=== PATIENT | female | born 1965 | race American Indian/Alaskan Native ===

== ENCOUNTER 2016-12-30 13:06 | Emergency (ER) | payer SELFPAY ==
[2016-12-30 14:06] VITALS: BP 140/99
[2016-12-30 14:35] LABS: Bilirubin,Urine NEG (Negative); Blood,Urine NEG (Negative); Ketones,Urine NEG (Negative); Leukocyte Esterase,Urine NEG (Negative); Mucus,Urine FEW /HPF; Nitrite,Urine NEG (Negative); Protein,Urine <15 mg/dL mg/dL (Negative); WBC,Urine < 1.0 /HPF (0.0-6.0)
[2016-12-30 14:38] LABS: Basophils % (Auto) 0.8 % (0.0-1.8); Eosinophils % (Auto) 1.5 % (0.0-4.3); Hematocrit 32.6 % (30.3-42.9); Mean Corpuscular HGB Conc 31 % (30-34); Platelet Count 307 K/mm3 (140-440); Red Blood Count 4.68 M/mm3 (3.65-5.03); Red Cell Distribution Width 18.9 % (13.2-15.2); White Blood Count 5.8 K/mm3 (4.5-11.0)
[2016-12-30 14:42] LABS: Mean Corpuscular Hemoglobin 21 pg (28-32); Mean Corpuscular Volume 70 fl (79-97)
[2016-12-30 14:57] LABS: Albumin 3.9 g/dL (3.9-5); Alkaline Phosphatase 45 units/L (35-129); Anion Gap 17 mmol/L; BUN/Creatinine Ratio 13.33; Bilirubin,Total 0.3 mg/dL (0.1-1.2); Blood Urea Nitrogen 8 mg/dL (7-17); Calcium 8.8 mg/dL (8.4-10.2); Carbon Dioxide 25 mmol/L (22-30); Glucose 88 mg/dL (65-100); Lipase 25 units/L (13-60); Sodium 141 mmol/L (137-145); Total Protein 7.7 g/dL (6.3-8.2)
[2016-12-30 15:22] LABS: Alanine Aminotransferase < 5 units/L (7-56)
--- NOTE | 2017-01-03 18:45 | ED Elopement Review ---
ED Pt Elopement review - Results review Lab results: Laboratory Tests 12/30/16 12/30/16 12/30/16 14:00 14:08 14:08 WBC 5.8 RBC 4.68 Hgb 10.0 L Hct 32.6 MCV 70 L MCH 21 L MCHC 31 RDW 18.9 H Plt Count 307 Lymph % (Auto) 29.1 [place] % (Auto) 9.8 H Eos % (Auto) 1.5 Baso % (Auto) 0.8 Lymph # 1.7 [place] # 0.6 Eos # 0.1 Baso # 0.0 Seg Neutrophils % 58.8 Seg Neutrophils # 3.4 Sodium 141 Potassium 4.0 Chloride 103.0 Carbon Dioxide 25 Anion Gap 17 BUN 8 Creatinine 0.6 L Estimated GFR > 60 BUN/Creatinine Ratio 13.33 Glucose 88 Calcium 8.8 Total Bilirubin 0.3 AST 18 ALT < 5 L Alkaline Phosphatase 45 Total Protein 7.7 Albumin 3.9 Albumin/Globulin Ratio 1.0 Lipase 25 Urine Color Yellow Urine Turbidity Clear Urine pH 6.0 Ur Specific [place] 1.021 Urine Protein <15 mg/dl Urine Glucose (UA) Neg Urine Ketones Neg Urine Blood Neg Urine Nitrite Neg Urine Bilirubin Neg Urine Urobilinogen 2.0 Ur Leukocyte Esterase Neg Urine WBC (Auto) < 1.0 Urine RBC (Auto) 2.0 Urine Mucus Few - Call Back decision Pt Call Back Decision: Pt to F/U with PMD
== END 2016-12-30 17:40 | disposition left against medical advice (07) ==
LOC: ED 13:06
DX: R10.30 Lower abdominal pain, unspecified (principal); Z53.21 Procedure and treatment not carried out due to patient leaving prior to being seen by health care provider
CPT/HCPCS: 36415; 80053; 81001; 83690; 85025